=== PATIENT | male | born 1985 | race Caucasian/White ===

== ENCOUNTER 2022-02-16 15:20 | Emergency (ER) | payer OTHER ==
[~2022-02-16 15:20] MED LIST: IBUPROFEN400 MG PO; MEDROL 4MG DOSEP4 MG PO
== END 2022-02-16 18:48 | disposition other institution (70) ==
LOC: FER 15:20
DX: S92.002A Unspecified fracture of left calcaneus, initial encounter for closed fracture (principal); W11.XXXA Fall on and from ladder, initial encounter; Y93.89 Activity, other specified; Y92.89 Other specified places as the place of occurrence of the external cause; Y99.0 Civilian activity done for income or pay
CPT/HCPCS: 70450; 71045; 72125; 72128; 72131; 72192; 73610; 73630; 73650; J1170; J2405; J3010; J7030